=== PATIENT | female | born 1960 | race Caucasian/White ===

== ENCOUNTER → 2016-11-09 | Outpatient (CLI) | payer OTHER, BC ==
[~2016-11-09] MED LIST: IOHEXOL 180 MG/ML 10 ML VIAL. ONE; methylPREDNISolone ACETATE 40 MG/ML VIAL. ONE; methylPREDNISolone ACETATE 80 MG/ML VIAL. ONE
--- NOTE | 2016-11-09 20:50 | PAIN ---
DATE OF SERVICE: 11/09/2016 DIAGNOSES: Lumbar radiculopathy with lumbar degenerative disk disease and lumbar spinal stenosis. HISTORY OF PRESENT ILLNESS: The patient is a 56-year-old female, who returns for followup status post previous lumbar epidural steroid injections, last seen in 06/2016. The patient did very well with near 95% improvement initially. The pain returned now over the past month or so in the low back, more on the right side, right lateral anterior thigh as well as the posterior hips bilaterally and somewhat in the left low back which is more than she had previously on the left side, was all right-sided ____ initially. The patient reports that it is a stabbing pain. It is also causing some cramps in the legs now, radiating, aching and dull, radiating to the right side greater than left as noted and rates as 8 on a scale of 10. The patient reports it is worse with activity, standing, walking, changing positions, has been waking her from sleep at night. She has also had some increased urinary frequency when the pain is at its worst. The patient reports no other motor or sensory deficits, no new bowel or bladder incontinence or other complaints. PHYSICAL EXAMINATION: VITAL SIGNS: The patient's blood pressure is 165/92, pulse 71, respirations 18, temperature 97.9 degrees Fahrenheit, height is 5 feet 5 inches, weight is 198 pounds. GENERAL: The patient is awake, alert, oriented, appropriate, very pleasant demeanor. HEENT: Shows normocephalic, atraumatic. Extraocular movements are intact, symmetrical. Oral cavity shows mucous membranes are moist and pink. Dentition is intact. NECK: Shows anterior throat supple. Swallow reflex is symmetrical. Neck shows full rotation and motion of cervical spine. CHEST: Shows normal on inspection. Breath sounds are clear to auscultation bilaterally. HEART: Shows S1 and S2 clear. ABDOMEN: Soft, nontender, nondistended. No palpable organomegaly is noted. No rebound or guarding demonstrated. BACK: Shows spine grossly in midline, normal-appearing thoracic kyphosis and lumbar lordotic curvature. Lumbar paraspinous muscle shows some moderate tenderness with palpation bilaterally only in the low lumbar distribution, but is symmetrical without evidence of atrophy, hypertrophy. No trigger points, no radiation of pain, no tenderness over the sacrum or sacroiliac regions. The patient shows good rotation and motion of the lumbar spine, both laterally greater than 10 degrees right and left as well as extension greater than 10 degrees, forward flexion 45 degrees. EXTREMITIES: Lower extremities show deep tendon reflexes at 2+ in the patellar and 1+ tendo-calcaneus tendons, are equal. Motor exam is strong with 5/5 dorsiflexion, extension, quadriceps and hamstring flexion equal. Peripheral pulses are 2+ posterior tibial and dorsalis pedis pulses. No peripheral edema is noted. No clubbing, no cyanosis. Lower extremities are warm and dry to touch, equal in color and appearance. PLAN: Options were discussed with the patient. The patient's old chart was reviewed as her current medications regimen and updated. Current review of systems updated today as well. All systems reviewed and otherwise negative. It is full documented on the patient's chart. We will plan on lumbar epidural steroid injection today with fluoroscopic guidance as the patient has done very well with these in the past. Risks were again discussed including, but not limited to bleeding, infection, possibility of epidural hematoma and subsequent neurological compromise, dural puncture, headaches, spinal cord and/or nerve damage, side effects of steroid medication and poor results regarding pain control. The patient understands and wishes to proceed. The patient will return to clinic in approximately 2 weeks for followup, was counseled on return appointment, activity level and side effects to be aware of. DIAGNOSES: Lumbar radiculopathy with lumbar degenerative disk disease and lumbar spinal stenosis. PROCEDURE: Lumbar epidural steroid injection, translaminar approach at the L4-L5 level with fluoroscopic guidance under sterile prep and drape using local anesthetic. Medication injected is 120 mg of Depo-Medrol plus 10 mL of preservative free normal saline and 2 mL of Isovue contrast. Condition at discharge is stable. The patient tolerated the procedure well, had no complications. SHEILA RAE MD DR: ANA/carson JOB#: [id number] / [id number]
== END | disposition home or self-care (01) ==
LOC: PNCL 08:00
PROVIDERS: ATTEND Anesthesiology
DX: M51.16 Intervertebral disc disorders with radiculopathy, lumbar region (principal); M48.06 Spinal stenosis, lumbar region
CPT/HCPCS: 62323; J1030; J1040

== ENCOUNTER → 2016-12-15 | Outpatient (CLI) | payer OTHER, BC ==
--- NOTE | 2016-12-15 12:48 | PAIN ---
DATE OF SERVICE: 12/15/2016 DIAGNOSES: Lumbar radiculopathy with lumbar spinal stenosis and lumbar degenerative disk disease. HISTORY OF PRESENT ILLNESS: The patient is a 56-year-old female, who returns for followup status post lumbar epidural steroid injection x 1. The patient reports 50% improvement. Overall, still some pain in the low back, bilateral lower extremities, much better with activity, walking, standing and changing positions, bending and leaning over the bathtub ____ to take care of her grandchild with much greater ease and comfort and she is quite pleased with this. The patient reports no new motor or sensory deficits. Still has some dull ____ sharp pain in the low back, bilateral lower extremities, mostly radiating to lateral anterior thighs to the level of the knee bilaterally, essentially equal right and left. The patient reports a 4 on a scale of 10 currently, reports no new motor or sensory deficits, no new bowel or bladder incontinence or other complaints. PHYSICAL EXAMINATION: VITAL SIGNS: The patient's blood pressure ____, pulse 70, respirations 18, temperature 97.4 degrees Fahrenheit, height is 5 feet 5 inches, 194 pounds. GENERAL: The patient is awake, alert, oriented, appropriate, very pleasant demeanor. HEENT: Head shows normocephalic, atraumatic. Extraocular movements are intact, symmetrical. Oral cavity, mucous membranes are moist and pink. Dentition is intact. NECK: Shows anterior throat supple without palpable lymphadenopathy noted. Swallow reflex is symmetrical. CHEST: Shows normal on inspection. Breath sounds clear to auscultation bilaterally. HEART: Shows S1 and S2 clear. ABDOMEN: Soft, nontender, nondistended. BACK: Shows spine grossly midline. Lumbar paraspinous muscle shows some moderate tenderness in the middle and lower distribution of paraspinous muscle, but only diffusely without radiation. Good rotation and motion both laterally as well as extension and flexion. Lower extremities showed deep tendon reflexes at 2+ in the patellar tendons, 1+ tendo calcaneus tendons are equal. Motor exam is strong with 5/5 dorsiflexion, extension, quadriceps and hamstring flexion and are equal. Options were discussed with the patient. The patient's old chart was reviewed as her current medication regimen updated. Current review of systems updated today as well. We will proceed with a second lumbar epidural steroid injection today with fluoroscopic guidance. Risks were again discussed including, but not limited to bleeding, infection, possibility of epidural hematoma, subsequent neurologic compromise, dural puncture, headaches, spinal cord and/or nerve damage, side effects of steroid medication and poor results regarding pain control. The patient understands and wishes to proceed. The patient will return to the clinic in approximately 2 weeks for followup. She was counseled on return appointment, activity level and side effects to be aware of. DIAGNOSES: Lumbar radiculopathy with lumbar degenerative disk disease and lumbar spinal stenosis. PROCEDURE: Lumbar epidural steroid injection in translaminar approach at L4-L5 level using C-arm fluoroscopic guidance under sterile prep and drape using local anesthetic. Medications injected are 120 mg Depo-Medrol plus 10 mL of preservative-free normal saline and 2 mL of Isovue for contrast. CONDITION AT DISCHARGE: Stable. The patient tolerated procedure well, had no complications. SHEILA RAE MD DR: ANA/carson JOB#: [id number] / [id number]
== END | disposition home or self-care (01) ==
LOC: PNCL 08:16
PROVIDERS: ATTEND Anesthesiology
DX: M51.16 Intervertebral disc disorders with radiculopathy, lumbar region (principal)
CPT/HCPCS: 62323; J1030; J1040

== ENCOUNTER → 2017-04-15 | Outpatient (CLI) | payer OTHER, BC ==
--- NOTE | 2017-04-16 03:56 | PAIN ---
DATE OF SERVICE: 04/15/2017 DIAGNOSES: Lumbar radiculopathy with lumbar spinal stenosis and lumbar degenerative disk disease. HISTORY OF PRESENT ILLNESS: The patient is a 56-year-old female who returns for followup status post lumbar epidural steroid injection x 2, last seen on 12/15/2016. The patient reports that she did fairly well with this with about 50% improvement in her low back and right lower extremity pain, but the pain is beginning to come back, mostly in the low back now, which is bilateral, worse at the end of the day, worse with sleeping. She describes it as an 8-9 on a scale of 10 and it is a 3 on a scale of 10 at least, it is currently a 4 on a scale of 10 with radiating pain into the right lower extremity, posterior gluteus, posterior thigh, posterior lower legs as well as sharp pain across the low back. The patient reports that at the end of the day the pain becomes unbearable. Sometimes, it awakens her from sleep, in the back itself but not radiating into the leg if she sleeps on her right or left side, sometimes worse on the right. The patient reports it is a burning pain, which is searing. Better with changing positions or getting up and walking around. She has been putting ice packs on her low back, which seems to help some as well when it gets to this point. The patient is doing some current pool therapy on her own as she was unable to do it with the therapist at that time, they were available for the pool, but she is doing this on her own at least 3 times a week at a community pool. The patient reports this helps, but is not completely relieving the pain. The patient reports no new motor or sensory deficits, no new bowel or bladder incontinence or other complaints. PHYSICAL EXAMINATION: VITAL SIGNS: Today, the patient's blood pressure is 164/71, respirations are 18, pulse is 82, temperature is 98.0 degrees Fahrenheit. Height is 5 feet 5 inches, weight is 197 pounds. GENERAL: The patient is awake, alert, oriented, appropriate, very pleasant demeanor. HEENT: Shows normocephalic and atraumatic. Extraocular movements are intact and symmetrical. Oral cavity shows mucous membranes are moist and pink. Dentition is intact. NECK: Shows anterior throat supple without palpable lymphadenopathy noted. Swallow reflex is symmetrical. CHEST: Shows normal on inspection. Breath sounds are clear to auscultation bilaterally. HEART: Shows S1 and S2 clear. No murmurs auscultated. ABDOMEN: Obese, soft, nontender, nondistended. No palpable organomegaly is noted. No rebound or guarding demonstrated. BACK: Shows spine grossly in the midline. Slight exaggeration of thoracic kyphosis. Some mild flattening of the lumbar lordotic curvature. Lumbar paraspinous musculature shows symmetrical on inspection; with palpation, it shows some moderate tenderness diffusely in the upper, middle and lower distribution bilaterally, but is symmetrical. No radiation of pain. No trigger points. The patient shows no tenderness over the spinous processes, sacrum or sacroiliac region. Shows good rotational motion of the lumbar spine, both laterally greater than 10 degrees right and left as well as extension greater than 10 degrees, forward flexion to 45 degrees without significant pain reported. EXTREMITIES: Lower extremities show deep tendon reflexes 2+ in the patellar and 1+ tendo-calcaneus tendons and are equal. Motor exam is strong with 5/5 dorsiflexion, extension, quadriceps and hamstring flexion and is symmetrical. Peripheral pulses are 1+, posterior tibial and dorsalis pedis pulses. No peripheral edema is noted. No clubbing. No cyanosis. Lower extremities are warm and dry to touch, equal in color and appearance. The patient is able to stand, stand on her toes. She is walking with a normal-appearing gait for short distance in the office, not using any assistive devices. PLAN: Options were discussed with the patient. The patient's old chart was reviewed as her current medication regimen and updated. Current review of systems is updated today as well, and we will hold on any further injections as she would like to hold on this per her choice, she would like to increase her physical therapy. We discussed pool therapy and to continue this and also some stretching and strengthening exercises that she can do at home, also applying heat and cold packs as well as ThermaCare pads. Also, we discussed a TENS unit, we will recommend that she obtain one of these. She would like to get one of these on her own. We recommend that she get this and place the patches to get the best stimulation across her low back and how to use the machine once obtained. The patient will try these things and would like to give herself some more time. We will see her back in about 1 month if necessary and she would like to call for her next appointment. The patient was counseled as to activity levels as well as application with the TENS unit and her physical therapy and continuation with the water therapy. SHEILA RAE MD DR: ANA/carson JOB#: [id number] / [id number]
== END | disposition home or self-care (01) ==
LOC: PNCL 10:21
PROVIDERS: ATTEND Anesthesiology
DX: M51.16 Intervertebral disc disorders with radiculopathy, lumbar region (principal); M48.06 Spinal stenosis, lumbar region
CPT/HCPCS: 99212; J1030; J1040